=== PATIENT | female | born 1980 | race African-American/Black ===

== ENCOUNTER 2020-03-28 18:15 | Emergency (ER) | payer OTHER ==
[~2020-03-28] VITALS: Ht 167.6 cm; Wt 72.6 kg
[~2020-03-28 18:15] MED LIST: DOXYCYCLINE HY100 MG PO; PERCOCET 7.5-501 TAB PO; TRAMADOL HCL50 MG PO
[2020-03-28] MEDS ORDERED: BACTRIM DS TAB1 EACH PO (22:44)
[2020-03-28] MEDS ORDERED: KETO10TA2 PO (22:45)
== END 2020-03-28 22:56 | disposition home or self-care (01) ==
LOC: ER 18:15
DX: N13.39 Other hydronephrosis (principal); N39.0 Urinary tract infection, site not specified; R10.31 Right lower quadrant pain

== ENCOUNTER 2021-05-31 21:29 | Emergency (ER) | payer OTHER ==
[~2021-05-31] VITALS: Ht 167.6 cm; Wt 72.6 kg
[~2021-05-31 21:29] MED LIST changes: +BACTRIM DS TAB1 EACH PO; +KETO10TA2 PO
[2021-06-01] MEDS ORDERED: CIPRO500 MG PO (00:02)
[2021-06-01] MEDS ORDERED: KETO10TA2 PO (00:03)
[2021-06-01] MEDS ORDERED: ZOFRAN8 MG PO (00:12)
== END 2021-06-01 00:14 | disposition home or self-care (01) ==
LOC: ER 21:29
DX: N39.0 Urinary tract infection, site not specified (principal); N20.9 Urinary calculus, unspecified